=== PATIENT | female | born 1955 | race Caucasian/White ===

== ENCOUNTER 2023-02-09 08:58 | Emergency (ER) | payer MEDICARE ==
[~2023-02-09] VITALS: Ht 157.5 cm; Wt 64.4 kg
[2023-02-09] MEDS ORDERED: FLUORESCEIN SODIUM 1 MG STRIP ONE (09:34)
[2023-02-09] MEDS ORDERED: TETRACAINE HCL 0.5% OPHT DROP 2 ML BOTTLE ONE (09:34)
--- NOTE | 2023-02-09 09:37 | NUR ---
seen and examined by
[2023-02-09] MEDS ORDERED: FLUORESCEIN SODIUM 1 MG STRIP OP ONE (09:55)
[2023-02-09] MEDS ORDERED: TETRACAINE HCL 0.5% OPHT DROP 2 ML BOTTLE OP ONE (09:55)
[2023-02-09] MEDS ORDERED: GENT5DRO4 EACHEYE (09:56)
--- NOTE | 2023-02-09 10:01 | NUR ---
Patient discharged to home in stable condition. Written and verbal after care instructions given. Patient verbalizes understanding of instructions. Stressed follow up or return to ER for worsening s/s.
[2023-02-09 10:02] VITALS: BP 122/70; TEMP 98; O2SAT 100
== END 2023-02-09 10:03 | disposition home or self-care (01) ==
LOC: ER 08:58
DX: H10.403 Unspecified chronic conjunctivitis, bilateral (principal); B96.89 Other specified bacterial agents as the cause of diseases classified elsewhere; E03.9 Hypothyroidism, unspecified; Z79.899 Other long term (current) drug therapy
CPT/HCPCS: A4663